=== PATIENT | female | born 1945 | race Hispanic/Latino ===

== ENCOUNTER 2016-08-27 11:21 | Outpatient (CLI) | payer MEDICARE ==
--- NOTE | 2016-08-27 13:08 | Cat Scan Report ---
CT scan of abdomen and pelvis without IV contrast: History: Normal lung bases. No pleural pericardial effusion. Normal liver pancreas and spleen. Patient status post cholecystectomy. Normal adrenals kidney parenchyma and bladder. No free intraperitoneal fluid or air. No evidence of adenopathy. Atherosclerotic aorta. No aneurysm. Appendix appears unremarkable. No evidence of diverticulitis. No bowel distention. Impression: No acute abdominal findings.
== END 2016-08-27 11:22 | disposition home or self-care (01) ==
LOC: CT 11:21
PROVIDERS: ATTEND Internal Medicine Cardiovascular Disease
DX: I10 Essential (primary) hypertension (principal); Z90.49 Acquired absence of other specified parts of digestive tract
CPT/HCPCS: 74176

== ENCOUNTER 2016-09-21 10:28 | Outpatient (CLI) | payer MEDICARE ==
--- NOTE | 2016-09-21 12:09 | Mammography Report ---
BILATERAL MAMMOGRAM with CAD: HISTORY: Cancer screening. Comparison study is dated 2015. FINDINGS: There are scattered fibroglandular densities (approximately 25%-50% glandular). No mass, distortion, suspicious calcification, or skin change is seen. IMPRESSION: Negative mammogram. There is no mammographic evidence of malignancy. RECOMMENDATION: Follow-up per ACS guidelines. BI-RADS CATEGORY: 1 = Negative ACR BI-RADS MAMMOGRAPHIC CODES: 0 = Needs additional imaging evaluation; 1 = Negative; 2 = Benign; 3 = Probably benign; 4 = Suspicious; 5 = Malignant; 6 = Known biopsy-proven malignancy COMMENT: 1. Dense breast tissue, i.e., adenosis, fibrocystic changes, etc., may obscure an underlying neoplasm. 2. Approximately 10% of cancers are not detected with mammography. 3. A negative mammography report should not delay biopsy if a clinically suspicious mass is present. COMMENT: Patient follow-up letters are generated in [employer].
--- NOTE | 2016-09-21 12:10 | Mammography Report ---
BONE DENSITY STUDY: DEFINITIONS: BMD = Bone Mineral Density T-score = BMD related to mean peak bone mass of young adult (mean expressed in Standard Deviation) Z-score = Age matched BMD expressed in SD World Health Organization (WHO) Diagnostic Criteria Normal T-score > -1 SD Osteopenia T-score between -1 and -2.4 SD Osteoporosis T-score -2.5 SD or below FINDINGS: The weighted average BMD of lumbar spine L1-L4 is 0.844 with a T-score of -1.8. The weighted average BMD of hip is 0.795 with a T-score of -1.2. IMPRESSION: The patient's T-score is diagnostic for osteopenia and average relative risk for fracture. NOTE: BMD is not the only risk factor for fracture; also consider factors such as the patient's age, risk of falling, previous osteoporotic fracture, family history of osteoporotic fractures, current smoker, and low body weight. Schulz's triangle is a region of interest in femur, predominantly of trabecular bone. It is not a true anatomic site, and [facility] does not recommend its use clinically.
== END 2016-09-21 10:29 | disposition home or self-care (01) ==
LOC: MAMMO 10:28
DX: Z12.31 Encounter for screening mammogram for malignant neoplasm of breast (principal); M85.88 Other specified disorders of bone density and structure, other site
CPT/HCPCS: 77080; G0202; 77067

== ENCOUNTER 2017-09-29 10:58 | Outpatient (CLI) | payer MEDICARE ==
--- NOTE | 2017-09-29 13:15 | Mammography Report ---
Bilateral mammogram: Compared 07/24/16. CAD study utilized. Findings: Scattered the renal parenchyma bilaterally. Benign calcifications. Benign density right breast. Benign axillary nodes. Impression: Benign findings. Annual followup recommended. COMMENT: [facility]
== END 2017-09-29 10:59 | disposition home or self-care (01) ==
LOC: MAMMO 10:58
DX: Z12.31 Encounter for screening mammogram for malignant neoplasm of breast (principal)
CPT/HCPCS: 77067

== ENCOUNTER 2020-03-12 10:35 | Outpatient (CLI) | payer MEDICARE ==
--- NOTE | 2020-03-12 12:15 | Mammography Report ---
DIGITAL SCREENING MAMMOGRAM WITH CAD, 03/12/2020 INDICATION: Routine screening mammography. TECHNIQUE: Digital bilateral 2D mammography was obtained in the craniocaudal and mediolateral obliq ue projections. This examination was interpreted with the benefit of Computer-Aided Detection analysi s. COMPARISON: Prior mammograms 10/05/2018 and 09/29/2017 FINDINGS: Breast Density: There are scattered areas of fibroglandular density. There is no evidence of dominant mass, suspicious calcifications or architectural distortion in eithe r breast. There has been no significant change compared with the prior examinations. IMPRESSION: Follow up recommendation: Routine yearly BI-RADS Category 1: Negative. A "normal" or negative report should not discourage follow up or biopsy of a clinically significant f inding. A written summary of these findings will be mailed to the patient. The patient will be entered into a mammography reporting system which will generate a reminder letter for the patient's next appointmen t at the appropriate interval. The [employer] recommends yearly mammograms starting at age 40 and continuing as l eloina as a woman is in good health. Breast MRI is recommended for women with an approximate 20-25% or greater lifetime risk of breast cancer, including women with a strong family history of breast or ova anushka cancer or who have been treated for Hodgkin's disease. Signer Name: Cele Luz MD Signed: 03/12/2020 12:10 PM Workstation Name: [id number]
== END 2020-03-12 10:36 | disposition home or self-care (01) ==
LOC: SPVWC 10:35
DX: Z12.31 Encounter for screening mammogram for malignant neoplasm of breast (principal); N64.89 Other specified disorders of breast
CPT/HCPCS: 77067